=== PATIENT | female | born 1995 | race Caucasian/White ===

== ENCOUNTER 2017-10-21 17:30 | Emergency (ER) | payer MEDICAID ==
[2017-10-21] MEDS ORDERED: DOXYCYCLINE HYCLATE 100 MG CAP/TAB PO ONE (18:00)
[2017-10-21] MEDS ORDERED: cefTRIAXone 250 MG VIAL IM ONE (18:00)
--- NOTE | 2017-10-21 18:07 | EDPHY ---
H & P Stated Complaint: CREAMY VAGINAL DISCHARGE X 1 WEEK Time Seen by Provider: 10/21/17 17:45 HPI/ROS: CHIEF COMPLAINT: Vaginal discharge HISTORY OF PRESENT ILLNESS: The patient is a 22-year-old female who comes to the emergency department requesting STD testing. She states that her boyfriend has been unfaithful. She has had creamy discharge for the last week. No significant pain. No bleeding. She denies risk of . She states that she has an implant. No fevers. No urinary symptoms. REVIEW OF SYSTEMS: Constitutional: denies: chills, fever, recent illness, recent injury EENTM: denies: blurred vision, double vision, nose congestion Respiratory: denies: cough, shortness of breath Cardiac: denies: chest pain, irregular heart rate, lightheadedness, palpitations Gastrointestinal/Abdominal: denies: abdominal pain, diarrhea, nausea, vomiting, blood streaked stools Genitourinary: See HPI Musculoskeletal: denies: joint pain, muscle pain Skin: denies: lesions, rash, jaundice, bruising Neurological: denies: headache, numbness, paresthesia, tingling, dizziness, weakness Hematologic/Lymphatic: denies: blood clots, easy bleeding, easy bruising Immunologic/allergic: denies: HIV/AIDS, transplant EXAM: GENERAL: Well-appearing, well-nourished and in no acute distress. HEAD: Atraumatic, normocephalic. EYES: Pupils equal round and reactive to light, extraocular movements intact, sclera anicteric, conjunctiva are normal. ENT: TMs normal, nares patent, oropharynx clear without exudates. Moist mucous membranes. NECK: Normal range of motion, supple without lymphadenopathy or JVD. LUNGS: Breath sounds clear to auscultation bilaterally and equal. No wheezes rales or rhonchi. HEART: Regular rate and rhythm without murmurs, rubs or gallops. ABDOMEN: Soft, nontender, normoactive bowel sounds. No guarding, no rebound. No masses appreciated. : Yellowish discharge, mild cervical motion tenderness, no bleeding, no masses BACK: No CVA tenderness, no spinal tenderness, step-offs or deformities EXTREMITIES: Normal range of motion, no pitting or edema. No clubbing or cyanosis. NEUROLOGICAL: Cranial nerves II through XII grossly intact. Normal speech, normal gait. 5/5 strength, normal movement in all extremities, normal sensation PSYCH: Normal mood, normal affect. SKIN: Warm, dry, normal turgor, no visible rashes or lesions. Source: Patient Exam Limitations: No limitations - Personal History LMP (Females 10-55): 8-14 Days Ago Current Tetanus Diphtheria and Acellular Pertussis (TDAP): Yes - Medical/Surgical History Hx Asthma: No Hx Chronic Respiratory Disease: No Hx Diabetes: No Hx Cardiac Disease: No Hx Renal Disease: No Hx Cirrhosis: No Hx Alcoholism: No Hx HIV/AIDS: No Hx Splenectomy or Spleen Trauma: No Other PMH: NONE PER PT - Family History Significant Family History: No pertinent family hx - Social History Smoking Status: Current every day smoker Alcohol Use: Sober Drug Use: None Constitutional: Initial Vital Signs Temperature (C) 36.9 C 10/21/17 17:42 Heart Rate 125 H 10/21/17 17:42 Respiratory Rate 16 10/21/17 17:42 Blood Pressure 121/66 H 10/21/17 17:42 O2 Sat (%) 95 10/21/17 17:42 O2 Delivery Mode Room Air Allergies/Adverse Reactions: No Known Allergies Allergy (Verified 11/03/14 17:22) Home Medications: Medication Instructions Recorded Doxycycline Hyclate [Vibramycin] 100 mg PO BID #30 cap 10/21/17 Medical Decision Making ED Course/Re-evaluation: The patient has symptoms consistent with pelvic inflammatory disease. I will treat with antibiotics. She would prefer to take the doxycycline. Labs have been sent. She declines further workup or testing. Differential Diagnosis: Partial list of the Differential diagnosis considered include but were not limited to; GC, chlamydia, BV and although unlikely based on the history and physical exam, I also considered urinary tract infection, herpes, urinary tract infection, pyelo, liver infection. I discussed these differential diagnoses and the plan with the patient as well as the usual and expected course. The patient understands that the diagnosis is provisional and that in medicine we are not always correct and that further workup is often warranted. Usual and customary warnings were given. All of the patient's questions were answered. The patient was instructed to return to the emergency department should the symptoms at all worsen or return, otherwise to followup with the physician as we discussed. - Data Points Laboratory Results: 0110/21/17 10/21/17 18:00 18:00 17:45 Urine Test NEGATIVE Kristan species DNA Pending C.trachomatis RNA (TMA) Pending Gardnerella DNA Probe Pending N.gonorrhoeae RNA (TMA) Pending Trichomonas DNA Probe Pending Medications Given: Discontinued Medications Ceftriaxone Sodium (Rocephin 250mg Vial) 250 mg IM EDNOW ONE PRN Reason: Protocol Stop: 10/21/17 18:01 Last Admin: 10/21/17 18:27 Dose: 250 mg Doxycycline Hyclate (Doxycycline Hyclate) 100 mg PO EDNOW ONE PRN Reason: Protocol Stop: 10/21/17 18:01 Last Admin: 10/21/17 18:27 Dose: 100 mg Departure - Departure Disposition: Home, Routine, Self-Care Clinical Impression: Pelvic inflammatory disease (PID) Condition: Good Instructions: Pelvic Inflammatory Disease (ED) Referrals: Susana Graham MD [Primary Care Provider] - As per Instructions Prescriptions: Doxycycline Hyclate [Vibramycin] 100 mg PO BID #30 cap
[2017-10-21 18:42] VITALS: BP 115/62; PULSE 85; RESP 18; TEMP 98; O2SAT 96
[2017-10-22 14:26] LABS: GC AMPLIFICATION GENPROBE NEGATIVE (NEGATIVE)
== END 2017-10-21 18:40 | disposition home or self-care (01) ==
LOC: CED 17:30
DX: N73.9 Female pelvic inflammatory disease, unspecified (principal); F17.200 Nicotine dependence, unspecified, uncomplicated
CPT/HCPCS: 81025-PO; J0696